=== PATIENT | female | born 1990 | race American Indian/Alaskan Native ===

== ENCOUNTER 2019-03-02 20:41 | Outpatient (CLI) | payer MEDICAID ==
[2019-03-02 22:23] LABS: Hematocrit 26.7 % (30.3-42.9); Mean Corpuscular HGB Conc 34 % (30-34); Mean Corpuscular Volume 86 fl (79-97); Platelet Count 193 K/mm3 (140-440); Red Blood Count 3.11 M/mm3 (3.65-5.03); Red Cell Distribution Width 14.9 % (13.2-15.2)
[2019-03-02 22:30] LABS: Bacteria,Urine 4+ /HPF (Negative); Bilirubin,Urine NEG (Negative); Blood,Urine NEG (Negative); Color,Urine Yellow (Yellow); Mucus,Urine 3+ /HPF; Urobilinogen,Urine < 2.0 mg/dL (<2.0)
[2019-03-02 22:31] LABS: WBC,Urine > 182.0 /HPF (0.0-6.0)
[2019-03-02 22:44] LABS: Alanine Aminotransferase 7 units/L (7-56)
[2019-03-02 23:53] VITALS: BP 131/75
== END 2019-03-02 23:00 | disposition home or self-care (01) ==
LOC: TRG 20:41
PROVIDERS: ATTEND Obstetrics & Gynecology
DX: O47.03 False labor before 37 completed weeks of gestation, third trimester (principal); O99.513 Diseases of the respiratory system complicating pregnancy, third trimester; J45.909 Unspecified asthma, uncomplicated; Z3A.37 37 weeks gestation of pregnancy
CPT/HCPCS: 36415; 59025; 81001; 82565; 83615; 84450; 84460; 85027

== ENCOUNTER 2019-03-14 16:15 | Outpatient (CLI) | payer MEDICAID ==
[2019-03-14 17:49] VITALS: BP 123/71
--- NOTE | 2019-03-14 21:52 | Ultrasound Report ---
US OB limited INDICATION / CLINICAL INFORMATION: Evaluate amniotic fluid index. COMPARISON: None available. FINDINGS: Amniotic fluid index is 12.1 cm with largest pocket measuring 3.6 cm. Single viable intrauterine is seen in cephalic presentation with heart rate of 158. IMPRESSION: 1. Amniotic fluid index is 12.1 cm, within normal limits. 2. heart rate is 158. lie is cephalic. Signer Name: Torsten Luna MD Signed: 03/14/2019 9:48 PM Workstation Name: [id number]
--- NOTE | 2019-03-14 21:53 | Ultrasound Report ---
ULTRASOUND BIOPHYSICAL PROFILE INDICATION: bpp. COMPARISON: None available. FINDINGS: breathing movement = 2 Gross body movement = 2 tone = 2 Qualitative amniotic fluid volume = 2 Total biophysical score = 04/04 Amniotic fluid index is 12.1 cm. Presentation is Cephalic. heart rate is 158 beats per minute. IMPRESSION: biophysical profile = 04/04 Signer Name: Torsten Luna MD Signed: 03/14/2019 9:49 PM Workstation Name: [id number]
== END 2019-03-14 20:55 | disposition home or self-care (01) ==
LOC: TRG 16:15
PROVIDERS: ATTEND Obstetrics & Gynecology
DX: O47.1 False labor at or after 37 completed weeks of gestation (principal); Z3A.39 39 weeks gestation of pregnancy
CPT/HCPCS: 59025; 76815; 76819

== ENCOUNTER 2019-03-17 06:50 | Outpatient (CLI) | payer MEDICAID ==
[2019-03-17 07:08] VITALS: BP 129/79
[2019-03-17] MEDS ORDERED: PHENERGAN PO NR (08:01)
[2019-03-17] MEDS ORDERED: VISTARIL PO NR (08:02)
== END 2019-03-17 08:21 | disposition home or self-care (01) ==
LOC: TRG 06:50
PROVIDERS: ATTEND Obstetrics & Gynecology
DX: O47.1 False labor at or after 37 completed weeks of gestation (principal); Z3A.39 39 weeks gestation of pregnancy
CPT/HCPCS: 59025; Q0169; Q0177

== ENCOUNTER 2019-03-17 17:34 | Inpatient (IN) | payer MEDICAID ==
[2019-03-17] MEDS ORDERED: LACTATED RINGERS 1,000 ML ONE (18:24)
[2019-03-17] MEDS ORDERED: PHENERGAN PO PRN (18:28)
[2019-03-17] MEDS ORDERED: ZOFRAN IV PRN (18:28)
[2019-03-17] MEDS ORDERED: STADOL IV PRN (18:28)
[2019-03-17] MEDS ORDERED: SUBLIMAZE IV PRN (18:28)
[2019-03-17] MEDS ORDERED: BRETHINE SUB-Q PRN (18:28)
[2019-03-17] MEDS ORDERED: NARCAN 0.4 MG/1 ML IV PRN (18:28)
[2019-03-17] MEDS ORDERED: MINERAL OIL PO PRN (18:28)
[2019-03-17] MEDS ORDERED: BRETHINE IVP PRN (18:28)
--- NOTE | 2019-03-17 18:35 | History and Physical Report ---
History of Present Illness Date of examination: 03/17/19 Chief complaint: Labor History of present illness: Pt is a 29yo BF EDC 03/18/19; EGA 39 6/7 weeks presents to L&D complaining of RUC's q 3-4 mins. She denies ROM or bleeding. She received late care at [facility] since 27 weeks and co-managed by [facility] for fetus with clubbed foot and + Trichomonas - treated this . records are available and GBS is Negative. Past History Past Medical History: no pertinent history Past Surgical History: no surgical history [employer] History: herpes, trichomonas Family/Genetic History: none Social history: no significant social history, single - Obstetrical History Expected Date of Delivery: 03/18/19 Actual Gestation: 39 Week(s) 6 Day(s) : 1 Medications and Allergies Allergies Allergy/AdvReac Type Severity Reaction Status Date / Time No Known Allergies Allergy Verified 03/02/19 21:52 Home Medications Medication Instructions Recorded Confirmed Last Taken Type metroNIDAZOLE [Flagyl TAB] 4 tab PO ONCE #4 tablet 02/13/14 Unknown Rx cephALEXin [Keflex] 500 mg PO TID #21 capsule 08/17/14 Unknown Rx Doxylamine Succinate/Vit B6 2 each PO QHS #20 tablet. 08/18/18 Unknown Rx [Sheila Slaughter 10-10 mg Tablet] Active Meds: Active Medications Ondansetron HCl (Zofran) 4 mg IV ONCE ONE Stop: 03/17/19 19:20 Last Admin: 03/17/19 18:29 Dose: 4 mg Documented by: Review of Systems All systems: negative - Vital Signs Vital signs: Vital Signs Pulse BP 76 135/76 03/17/19 17:53 03/17/19 17:53 Temp Pulse Resp BP Pulse Ox 76 135/76 03/17/19 17:53 03/17/19 17:53 - Physical Exam Breasts: Positive: deferred Cardiovascular: Regular rate Lungs: Positive: Clear to auscultation Abdomen: Positive: normal appearance Genitourinary (Female): Positive: normal external genitalia Vagina: Positive: normal moisture Uterus: Positive: enlarged Extremities: Positive: normal - Obstetrical FHR: category 1 Uterine Contraction Monitor Mode: External Cervical Dilatation: 5 (per nurse) Cervical Effacement Percentage: 100 (per nurse) station: -1 Uterine Contraction Pattern: Regular Uterine Tone Measurement Phase: Contraction Uterine Contraction Intensity: Moderate Results Result Diagrams: 03/17/19 18:26 All other labs normal. Assessment and Plan - Patient Problems (1) 39 weeks gestation of Onset Date: 03/17/19 Current Visit: Yes Status: Acute Plan to address problem: A: IUP @ 39 6/7 weeks in labor GBS Negative P: Admit to L&D for expectant vaginal delivery
[2019-03-17] MEDS ORDERED: PITOCin/NS 30 UNIT/500ML 30 UNITS/500 ML BAG IV SCH ×2 (19:00)
[2019-03-17] MEDS ORDERED: PITOCin/NS 20 UNIT/1000ML DRIP 20 UNITS/1,000 ML BAG IV SCH (19:00)
[2019-03-17 19:11] LABS: Hematocrit 31.6 % (30.3-42.9); Hemoglobin 10.1 gm/dl (10.1-14.3); Mean Corpuscular HGB Conc 32 % (30-34); Mean Corpuscular Hemoglobin 27 pg (28-32); Mean Corpuscular Volume 84 fl (79-97); Platelet Count 201 K/mm3 (140-440); Red Blood Count 3.75 M/mm3 (3.65-5.03); Red Cell Distribution Width 15.8 % (13.2-15.2)
[2019-03-17] MEDS ORDERED: ZOFRAN IV ONE (19:19)
[2019-03-17] MEDS ORDERED: AMPICILLIN/NS 2 GM/100 ML 2 GM/100 ML BAG IV ONE (19:28)
[2019-03-17] MEDS ORDERED: XYLOCAINE 2% INFILTRATI ONE (19:28)
[2019-03-17] MEDS ORDERED: NARCAN 2 MG/2 ML IV PRN (20:24)
--- NOTE | 2019-03-17 20:26 | Anesthesia Consultation ---
Anesthesia Consult and Med Hx Date of service: 03/17/19 - Airway Anesthetic Teeth Evaluation: Good ROM Head & Neck: Adequate Mental/Hyoid Distance: Adequate Mallampati Class: Class II Intubation Access Assessment: Probably Good - Pulmonary Exam CTA: Yes - Cardiac Exam Cardiac Exam: RRR - Pre-Operative Health Status ASA Pre-Surgery Classification: ASA2 Proposed Anesthetic Plan: Epidural - Pulmonary Hx Asthma: No COPD: No Hx Pneumonia: No - Cardiovascular System Hx Hypertension: No - Central Nervous System Hx Seizures: No Hx Psychiatric Problems: No - Endocrine Hx Renal Disease: No Hx End Stage Renal Disease: No Hx Hypothyroidism: No Hx Hyperthyroidism: No - Hematic Hx Anemia: No Hx Sickle Cell Disease: No - Other Systems Hx Alcohol Use: No
[2019-03-17] MEDS: LACTATED RINGERS 1,000 ML IV SCH (20:48)
[2019-03-17] MEDS ORDERED: fentaNYL-BUPIV 2 MCG/ML-0.125% 200 MCG/100 ML BAG EPIDURAL SCH (21:00)
[2019-03-17] MEDS ORDERED: AMPICILLIN/NS 1 GM/50 ML 1 GM/50 ML BAG IV SCH (22:29)
[2019-03-18] MEDS ORDERED: MARCAINE 0.25% INFILTRATI ONE (00:09)
[2019-03-18] MEDS ORDERED: XYLOCAINE 2% INFILTRATI ONE ×2 (00:55→07:43)
[2019-03-18] MEDS: LACTATED RINGERS 1,000 ML IV SCH (00:59)
--- NOTE | 2019-03-18 03:48 | Procedure Note ---
OB Delivery Note - Delivery Date of Delivery: 03/18/19 Surgeon: GALEN KOO Estimated blood loss: 100cc - Vaginal Delivery presentation: vertex Delivery position: OA Intrapartum events: meconium Delivery induction: none Delivery augmentation: rupture of membranes, pitocin Delivery monitor: external FHT, external uterine Route of delivery: Delivery placenta: spontaneous Delivery cord: 3 umbilical vessels Episiotomy: none Delivery laceration: none Anesthesia: epidural Delivery comments: Infant delivered OA, cord clamped and cut and handed to awaiting Peds/RT in attendance - Infant A at 1 minute: 8 at 5 minutes: 9 Infant Gender: Female (4407gms)
[2019-03-18] MEDS ORDERED: LANSINOH TP PRN (03:49)
[2019-03-18] MEDS ORDERED: ZOFRAN IV PRN (03:49)
[2019-03-18] MEDS ORDERED: MILK OF MAGNESIA PO PRN (03:49)
[2019-03-18] MEDS ORDERED: DULCOLAX PR PRN (03:49)
[2019-03-18] MEDS ORDERED: PHENERGAN PR PRN (03:49)
[2019-03-18] MEDS ORDERED: PHENERGAN PO PRN (03:49)
[2019-03-18] MEDS ORDERED: NORCO 5/325 PO PRN (03:49)
[2019-03-18] MEDS ORDERED: TYLENOL PO PRN (03:49)
[2019-03-18] MEDS ORDERED: TUCKS PAD TP PRN (03:49)
[2019-03-18] MEDS ORDERED: BENADRYL PO PRN (03:49)
[2019-03-18] MEDS ORDERED: SODIUM CHLORIDE FLUSH SYRINGE 10 ML IV PRN (04:00)
[2019-03-18] MEDS ORDERED: IBUPROFEN PO SCH (04:00)
[2019-03-18] MEDS ORDERED: SENOKOT S PO SCH (04:00)
[2019-03-18] MEDS ORDERED: PITOCin/NS 20 UNIT/1000ML DRIP 20 UNITS/1,000 ML BAG IV SCH (04:00)
[2019-03-18] MEDS: IBUPROFEN PO SCH ×3 (06:25→18:38)
[2019-03-18] MEDS: COLACE PO SCH ×2 (11:15→21:56)
[2019-03-18] MEDS: PRENATAL VITAMIN PO SCH (11:15)
[2019-03-18] MEDS: SENOKOT S PO SCH ×2 (11:15→21:55)
[2019-03-18] MEDS: FEOSOL PO SCH ×2 (11:16→21:56)
[2019-03-18 15:45] LABS: Hematocrit 26.3 % (30.3-42.9); Hemoglobin 8.3 gm/dl (10.1-14.3)
[2019-03-18] MEDS ORDERED: DERMOPLAST TP PRN (18:59)
[2019-03-19] MEDS: IBUPROFEN PO SCH ×2 (02:22→02:23)
[2019-03-19] MEDS ORDERED: M-M-R II VACCINE SUB-Q ONE (03:49)
[2019-03-19] MEDS ORDERED: BOOSTRIX IM ONE (06:00)
--- NOTE | 2019-03-19 07:57 | Progress Note ---
Assessment and Plan - Patient Problems (1) 39 weeks gestation of Onset Date: 03/17/19 Current Visit: Yes Status: Resolved (2) (normal spontaneous vaginal delivery) Onset Date: 03/19/19 Current Visit: Yes Status: Resolved Plan to address problem: A: S/P - PPD #1 Doing well Asymptomatic anemia - stable P: May go home today. (3) Acute blood loss anemia Onset Date: 03/19/19 Current Visit: Yes Status: Resolved Subjective - Subjective Date of service: 03/19/19 Principal diagnosis: s/p - PPD #1 Interval history: Pt is feeling well without complaints. Bleeding improved. Patient reports: appetite normal, voiding normally, pain well controlled, flatus, ambulating normally, no dizzy ambulation, no nauseated [place]: doing well, bottle feeding Objective - Vital Signs Latest vital signs: Vital Signs Temp Pulse Resp BP BP Pulse Ox 03/19/19 01:03 98.0 F 73 20 117/55 98 03/18/19 18:38 18 03/18/19 16:17 98 F 68 18 111/60 03/18/19 14:10 97.9 F 64 18 120/59 100 03/18/19 13:12 97.9 F 78 16 123/61 97 03/18/19 07:58 98.0 F 75 16 131/63 98 Intake and Output 03/18/19 03/19/19 03/19/19 22:59 06:59 14:59 Intake Total 480 360 Balance 480 360 Intake: Oral 480 Intake, Free Water 360 Other: Total, Intake Amount 480 # Voids Void 2 - Exam Breasts: Present: deferred Abdomen: Present: normal appearance, soft Uterus: Present: normal, firm, fundal height below umbilicus Extremities: Present: normal - Labs Labs: Abnormal lab results 03/18/19 Range/Units 15:15 Hgb 8.3 L (10.1-14.3) gm/dl Hct 26.3 L (30.3-42.9) % Laboratory Tests 03/17/19 03/17/19 03/17/19 18:26 18:26 18:26 WBC 12.3 H RBC 3.75 Hgb 10.1 Hct 31.6 MCV 84 MCH 27 L MCHC 32 RDW 15.8 H Plt Count 201 RPR Nonreactive Blood Type B POSITIVE Antibody Screen Negative 03/18/19 15:15 WBC RBC Hgb 8.3 L Hct 26.3 L MCV MCH MCHC RDW Plt Count RPR Blood Type Antibody Screen
--- NOTE | 2019-03-19 09:04 | Discharge Summary ---
Providers - Providers Date of Admission: 03/17/19 18:33 Date of discharge: 03/19/19 Attending physician: GALEN KOO Primary care physician: GALEN KOO Hospitalization Reason for admission: active labor, IUP at term Delivery: Episiotomy: none Laceration: none Other procedures: none complications: none Discharge diagnosis: IUP at term delivered [place] baby: female Hospital course: Unremarkable. Condition at discharge: Good Disposition: DC-01 TO HOME OR SELFCARE - Discharge Diagnoses (1) 39 weeks gestation of Status: Resolved (2) (normal spontaneous vaginal delivery) Status: Resolved (3) Acute blood loss anemia Status: Resolved Plan - Discharge Medications Prescriptions: Ferrous Sulfate [Feosol 325 MG tab] 325 mg PO BID #60 tablet Ibuprofen [Motrin 600 MG tab] 600 mg PO Q6HR #30 tablet Vit-Fe Fumar-FA [ Vitamin] 1 each PO QDAY #30 tablet - Provider Discharge Summary Activity: routine, no sex for 6 weeks, no heavy lifting 4 weeks, no strenuous exercise Diet: routine Instructions: routine Additional instructions: [] Smoking cessation referral if applicable(refer to patient education folder for contact #) [] Refer to [facility]'s [facility] Booklet Call your doctor immediately for: * Fever > 100.5 * Heavy vaginal bleeding ( >1 pad per hour) * Severe persistent headache * Shortness of breath * Reddened, hot, painful area to leg or breast * Drainage or odor from incision. * Keep incision clean and dry at all times and follow doctor's instructions regarding bathing/showering - Follow up plan Follow up: GALEN KOO MD [Primary Care Provider] - 6 Weeks
[2019-03-19] MEDS: PRENATAL VITAMIN PO SCH (10:26)
[2019-03-19] MEDS: FEOSOL PO SCH (10:26)
[2019-03-19] MEDS: SENOKOT S PO SCH (10:26)
[2019-03-19] MEDS: COLACE PO SCH (10:26)
--- NOTE | 2019-03-19 11:00 | Post Anesthesia Evaluation ---
- Post Anesthesia Evaluation Patient Participated: Yes Airway Patent: Yes Stable Respiratory Function: Yes Nausea/Vomiting: No Temp > 96.8F: Yes Pain Manageable: Yes Adequeate Hydration: Yes Anesthesia Complications: No Block Receding Appropriately: Yes Patient on Ventilator: No
[2019-03-19 16:32] VITALS: BP 117/81
== END 2019-03-19 18:30 | disposition home or self-care (01) | DRG 775 ==
LOC: TRG 17:34 → LD 18:33 → OB 03-18 05:50
PROVIDERS: ADMIT Obstetrics & Gynecology; ATTEND Obstetrics & Gynecology
PROC: 10E0XZZ Delivery of Products of Conception, External Approach (ICD-10-PCS; principal; 2019-03-18)
PROC: 3E0R3BZ Introduction of Anesthetic Agent into Spinal Canal, Percutaneous Approach (ICD-10-PCS; 2019-03-18)
PROC: 00HU33Z Insertion of Infusion Device into Spinal Canal, Percutaneous Approach (ICD-10-PCS; 2019-03-18)
PROC: 3E0234Z Introduction of Serum, Toxoid and Vaccine into Muscle, Percutaneous Approach (ICD-10-PCS; 2019-03-19)
DX: O77.0 Labor and delivery complicated by meconium in amniotic fluid (principal); D62 Acute posthemorrhagic anemia; O99.02 Anemia complicating childbirth; Z23 Encounter for immunization; Z3A.39 39 weeks gestation of pregnancy; Z37.0 Single live birth; Z79.899 Other long term (current) drug therapy
CPT/HCPCS: 36415; 85014; 85018; 85027; 86592; 86850; 86900; 86901; 90715; G0378; A6250; J0290; J2405; J2590; J7120